=== PATIENT | male | born 1960 | race Caucasian/White ===

== ENCOUNTER 2017-06-12 12:17 | Outpatient (CLI) | payer OTHER ==
--- NOTE | 2017-06-12 15:13 | RAD ---
CHEST 1 VIEW: HISTORY: Pneumonia. COMPARISON: 08/25/02. FINDINGS: Cardiac silhouette and pulmonary vasculature are unremarkable. Mediastinum is midline. There is no confluent airspace consolidation, pneumothorax, or pleural fluid evident. Degenerative changes invol ve the thoracic spine on the lateral view. IMPRESSION: No active cardiopulmonary abnormalities are demonstrated. POS: H
--- NOTE | 2017-06-12 15:19 | RAD ---
RIGHT KNEE 2 VIEWS: HISTORY: Right knee pain. FINDINGS: Joint spaces are preserved. A small amount of fluid distends the suprapatellar burs. No acute fract ure or dislocation. Two tiny smooth and marginated calcifications overlie the posterior lateral aspe ct of the medial joint space compartment. Small lobular density over the suprapatellar bursa may als o represent intracapsular calcification. The smoothly marginated calcification just anterior to the tibial plateaus is favored to be extraarticular. There is calcification in the arterial structures. IMPRESSION: 1. Joint fluid with suspected intracapsular loose bodies of the medial compartment and suprapatellar bursa. No acute fracture or dislocation are apparent. 2. Atherosclerosis. POS: B[facility]
== END 2017-06-12 12:18 | disposition home or self-care (01) ==
LOC: NAV RAD 12:17
PROVIDERS: ATTEND Family Medicine
DX: M15.9 Polyosteoarthritis, unspecified (principal); I70.90 Unspecified atherosclerosis; Z87.01 Personal history of pneumonia (recurrent)
CPT/HCPCS: 71046